=== PATIENT | female | born 1975 | race Caucasian/White ===

== ENCOUNTER 2020-04-13 07:01 | Day surgery (SDC) | payer BC ==
[2020-04-13] MEDS ORDERED: fentaNYL 100 MCG/2 ML SDV ONE (07:05)
[2020-04-13] MEDS ORDERED: Propofol 200 MG/20 ML SDV ONE (07:05)
[2020-04-13] MEDS ORDERED: Midazolam 1 MG/ML 2 ML SDV ONE (07:05)
[2020-04-13] MEDS ORDERED: Lactated Ringers 1,000 ML IV ONE (07:30)
[2020-04-13] MEDS ORDERED: Cyanocobalamin (Vitamin B12) 1,000 MCG/ML SDV IM ONE (07:30)
[2020-04-13] MEDS ORDERED: Glycopyrrolate 0.2 MG/ML 2 ML SDV IVPUSH ONE (08:15)
[2020-04-13] MEDS ORDERED: MVI, Adult with Vitamin K 10 ML, Thiamine 200 MG, Chromium/Copper/Mang/Selen/Zn 1 ML in... IV ONE ×4 (08:30)
[2020-04-13] MEDS ORDERED: Lidocaine 2% 60 ML, Alum Hydrox/Mag Hydrox/Simeth 360 ML PO PRN ×2 (09:39)
[2020-04-13 10:11] VITALS: BP 116/58; PULSE 89
--- NOTE | 2020-04-19 12:32 | OR ---
DATE OF PROCEDURE: 04/13/2020 SURGEON: Denzel Mccullough MD PREOPERATIVE DIAGNOSIS: Epigastric pain, status post Mary-en-Y gastric bypass. 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 OPERATIVE PROCEDURES: Upper gastrointestinal endoscopy with biopsies of gastric pouch for CLOtest. ANESTHESIA: IV sedation. INDICATION FOR PROCEDURE: The patient is status post Mary-en-Y gastric bypass, presenting with some ongoing epigastric discomfort. The patient presently has been on Protonix and Carafate. She has not been liquifying the Carafate, however, and continues to have some epigastric discomfort. The plan is to proceed with upper GI endoscopy with biopsies and/or dilation as indicated. Potential risks including bleeding and perforation were discussed, and the patient wishes to proceed. DETAILS OF PROCEDURE: The patient was taken to the operating room and placed in a left lateral decubitus position. IV sedation was administered, after which the upper GI endoscope was passed orally through the length of the esophagus and into the gastric pouch, from there through the gastrojejunostomy roughly 20 cm into the Mary limb. Findings included normal hypopharynx, larynx, upper esophageal sphincter, and esophageal body. At the EG junction, there was a slight amount of inflammation. This extended across the gastric pouch, and the patient did have a focal ulceration at the gastrojejunostomy with some slight bleeding with the scope passing over that area. There was no stricturing of the gastrojejunostomy. Remainder of the visualized portion of the Mary limb was unremarkable. At this point, biopsies were obtained from the gastric pouch and sent for CLOtest for H pylori. Minimal bleeding from the biopsy sites was seen, and the procedure then concluded. The patient was taken to the recovery room in satisfactory condition. Plan will be to confirm the patient is presently taking Protonix. This was not on her medication list, per the computer record. I will also instruct her to liquify the Carafate, taking one-half tablet at a time in roughly a shot glass of water, after it has been dissolved. I will contact the patient if H pylori is positive. Otherwise, to help with her symptoms, we will have her mix 2 ounces of Xylocaine in 12 ounces of Mylanta, to take 1 or 2 tablespoons before meals on a p.r.n. basis. She will be set up for a virtual visit with Jinny Hernandez in roughly 1 month. Denzel Mccullough MD /[id number] [facility]
== END 2020-04-13 10:00 | disposition home or self-care (01) ==
LOC: JP.SDS 07:01
PROVIDERS: ATTEND Surgery
DX: K91.89 Other postprocedural complications and disorders of digestive system (principal); K91.850 Pouchitis; K29.60 Other gastritis without bleeding; E78.5 Hyperlipidemia, unspecified; I12.9 Hypertensive chronic kidney disease with stage 1 through stage 4 chronic kidney disease, or unspecified chronic kidney disease; N18.1 Chronic kidney disease, stage 1
CPT/HCPCS: 43239; 81025; 87081; A9270; J2250; J2704; J3010; J3411; J3420; J3490; J7120